=== PATIENT | female | born 1965 | race Caucasian/White ===

== ENCOUNTER 2018-01-30 14:27 | Outpatient (CLI) | payer OTHER | END 2018-01-30 14:28 | disposition home or self-care (01) | LOC: BICMAMMO 14:27 | PROVIDERS: ATTEND Family Medicine | DX: Z12.31 Encounter for screening mammogram for malignant neoplasm of breast (principal); Z80.3 Family history of malignant neoplasm of breast | CPT/HCPCS: 77067 ==

== ENCOUNTER 2018-09-16 17:38 | Emergency (ER) | payer OTHER ==
--- NOTE | 2018-09-16 19:06 | ULT ---
GALLBLADDER ULTRASOUND: 09/16/18 HISTORY: Right upper quadrant pain. Real time imaging of the right upper quadrant was performed. this shows a fairly large gallstone with in the gallbladder. No gallbladder wall thickening. The common duct is 3 mm. The visualized liver par enchyma shows no focal findings. The liver measures approximately 12 cm in length. Technologist repor ts a negative ultrasound Lora's sign. The pancreas is obscured. The right kidney is within normal limits in size and not obstructed. IMPRESSION: Cholelithiasis with a normal caliber common duct. POS: [facility]
--- NOTE | 2018-09-16 20:22 | CT ---
CT OF CHEST AND ABDOMEN AND PELVIS PERFORMED WITHOUT CONTRAST ENHANCEMENT: 09/16/18 HISTORY: Right sided pain and cough. COMPARISON: Gallbladder ultrasound done earlier today. No IV contrast administered as IV access could not be obtained. The lungs are clear of any infiltrative process. There is minimal linear atelectasis in the right americo g base. There is a noncalcified right lower lobe pulmonary nodule measuring 5 to [address] ructures appear unremarkable. The thoracic aorta is normal in caliber. CT OF ABDOMEN PERFORMED WITHOUT CONTRAST ENHANCEMENT: The liver, spleen and pancreas regions are noted. A large gallstone is present. There is no evidence of any pericholecystic inflammatory process. The right and left adrenal glands and right and left kidneys are normal in size. There is no signific ant periaortic or mesenteric adenopathy. CT OF PELVIS PERFORMED WITHOUT CONTRAST ENHANCEMENT: No evidence of adenopathy, mass or free fluid. Appendix region appears unremarkable. Review of osseous structures show no lytic or blastic bony change. IMPRESSION: 1. Gallstone. 2. No acute abnormalities of the chest, abdomen or pelvis. POS: [facility]
== END 2018-09-16 20:14 | disposition home or self-care (01) ==
LOC: ERS 17:38
DX: K80.20 Calculus of gallbladder without cholecystitis without obstruction (principal); F17.210 Nicotine dependence, cigarettes, uncomplicated; Z79.899 Other long term (current) drug therapy
CPT/HCPCS: 71250; 74177; 76705

== ENCOUNTER 2018-11-11 11:00 | Day surgery (SDC) | payer OTHER ==
--- NOTE | 2018-11-10 15:31 | HP ---
HISTORY OF PRESENT ILLNESS: This is a 53-year-old female comes for a colonoscopy for colon cancer screening. The patient has no specific GI symptom. There is no family history of colon cancer. ALLERGIES: PENICILLIN. MEDICAL ILLNESS: 1. Allergic rhinitis. 2. Gallstones. 3. Chronic acid reflux. 4. Hysterectomy. 5. Oophorectomy. 6. LEEP procedure in the past. PHYSICAL EXAMINATION: VITAL SIGNS: Her pulse is 72, blood pressure is 120/70. Conjunctivae clear. NECK: Supple. No adenitis or thyromegaly noted. CARDIOVASCULAR: First and second heart sounds. LUNGS: Clear to auscultation. ABDOMEN: Soft. No organomegaly. No tenderness. No masses. EXTREMITIES: Reveal no edema. ADMITTING DIAGNOSIS: A 53-year-old female comes for a colonoscopy for colon cancer screening. Job ID: [id number]
[2018-11-10 16:52] VITALS: BMI 29.8
--- NOTE | 2018-11-11 13:18 | OP ---
DATE OF PROCEDURE: 11/11/2018 PROCEDURE PERFORMED: Colonoscopy. PREOPERATIVE DIAGNOSIS: A 53-year-old female undergoing colonoscopy for colon cancer screening. POSTOPERATIVE DIAGNOSES: 1. Hypertrophied anal papillae. 2. Redundant colon. 3. Otherwise normal colonoscopy. DESCRIPTION OF PROCEDURE: The patient was placed on her left lateral position and was given sedation by Anesthesia Department. A rectal exam was done before scope was advanced into rectum. No lesions felt on rectal exam. A Pentax video colonoscope was introduced into the rectum and advanced all the way to the cecum. The prep was good. The mucosa appeared normal. The patient had a tortuous redundant sigmoid colon. Abdominal compression was used to advance the scope all the way into cecum. The appendicular opening, ileocecal wall, cecum, no pathology seen. Withdrawal from the cecum, ascending colon, hepatic flexure, no pathology seen. The transverse colon, splenic flexure, descending colon, sigmoid colon, no lesion. Retroflexion of scope in the rectum showed hypertrophied anal papillae. DISCHARGE PLANNING: This is a 53-year-old female referred to me for a colonoscopy for colon cancer screening. The patient had a colonoscopy. The colonoscopy was normal. DISCHARGE RECOMMENDATION: 1. The patient is advised to call me if she develops abdominal pain or hematochezia. 2. In the absence of any above symptoms, she will come back to me in 2 weeks. 3. Recommendation, repeat colonoscopy in 10 years. Job ID: [id number]
[2018-11-11] MEDS ORDERED: Lidocaine 1% PF 5 ML VIAL ONE (13:25)
[2018-11-11] MEDS ORDERED: PROPOFOL 200 MG/20 ML VIAL ONE (13:25)
== END 2018-11-11 14:10 | disposition home or self-care (01) ==
LOC: SDC 11:00
PROVIDERS: ATTEND Internal Medicine Gastroenterology
PROC: 0DJD8ZZ Inspection of Lower Intestinal Tract, Via Natural or Artificial Opening Endoscopic (ICD-10-PCS; principal; 2018-11-11)
DX: Z12.11 Encounter for screening for malignant neoplasm of colon (principal); K63.89 Other specified diseases of intestine; K62.89 Other specified diseases of anus and rectum; J30.9 Allergic rhinitis, unspecified; K21.9 Gastro-esophageal reflux disease without esophagitis; K80.80 Other cholelithiasis without obstruction; Z88.0 Allergy status to penicillin; Z90.710 Acquired absence of both cervix and uterus; Z90.721 Acquired absence of ovaries, unilateral; Z79.899 Other long term (current) drug therapy; Z98.890 Other specified postprocedural states
CPT/HCPCS: J2001; J2704

== ENCOUNTER 2019-01-30 06:07 | Day surgery (SDC) | payer OTHER ==
[2019-01-29 11:58] VITALS: BMI 30.6
[2019-01-30 06:54] LABS: #Basophils 0.1 thou/uL (0.0-0.2); #Eosinphils 0.4 thou/uL (0.0-0.7); #Lymphocytes 2.5 thou/uL (1.20-3.40); #Monocytes 0.5 thou/uL (0.11-0.59); #Neutrophils 4.5 thou/uL (1.40-6.50); %Basophils 0.7 % (0.0-1.0); %Eosinophils 4.9 % (0.0-10.0); %Lymphocytes 31.2 % (21.0-51.0); %Monocytes 6.7 % (0.0-10.0); %Neutrophils 56.4 % (42.0-75.0); Hemoglobin 13.8 g/dL (12.0-16.0); Mean Corpuscular HGB CONC 34.2 g/dL (32.0-36.0); Mean Corpuscular Hemoglobin 31.4 pg (27.0-31.0); Mean Corpuscular Volume 92.1 fL (78.0-98.0); Mean Platelet Volume 7.6 fL (7.4-10.4); Platelet Count 278 thou/uL (130-400); Red Blood Cell (RBC) Count 4.38 mill/uL (4.20-5.40); White Blood Cell (WBC) Count 8.1 thou/uL (4.8-10.8)
[2019-01-30 07:18] LABS: ALT (SGPT) 10 U/L (8-55); AST (SGOT) 12 U/L (5-34); Albumin 4.3 g/dL (3.5-5.0); Alkaline Phosphatase 88 U/L (40-150); Anion Gap 11 mmol/L (10-20); BUN (Urea Nitrogen) 6 mg/dL (9.8-20.1); Bilirubin, Total 0.4 mg/dL (0.2-1.2); Calc. Creatinine Clearance 100 mL/min (70-130); Calcium 9.3 mg/dL (7.8-10.44); Carbon Dioxide 28 mmol/L (22-29); Chloride 106 mmol/L (98-107); Estimated GFR-MDRD 75; Globulin 2.2 g/dL (2.4-3.5); Glucose 101 mg/dL (70-105); Protein, Total 6.5 g/dL (6.0-8.3); Sodium 141 mmol/L (136-145)
[2019-01-30] MEDS ORDERED: Levofloxacin 500 mg/D5W 100 ml Premix Bag ONE (07:52)
[2019-01-30] MEDS ORDERED: Midazolam HCl 2 mg/2 ml Vial ONE (07:52)
[2019-01-30] MEDS ORDERED: Bupivacaine/Epinephrine 0.25% 30 ML VIAL ONE (09:13)
[2019-01-30] MEDS ORDERED: Fentanyl 100 MCG/2 ML VIAL ONE ×2 (09:22→10:56)
[2019-01-30] MEDS ORDERED: Ondansetron PF 4 MG/2 ML Vial ONE (12:26)
--- NOTE | 2019-01-30 21:06 | PDOC.OP ---
Operative Note - Operative Note Operative Note: DATE OF PROCEDURE: 01/30/2019 PROCEDURES: Laparoscopic cholecystectomy. SURGEON: Daija Alvarado M.D. ASST.: Paul Gallo MS 3 PREOPERATIVE DIAGNOSIS: Cholelithiasis, symptomatic POSTOPERATIVE DIAGNOSIS: Cholelithiasis, symptomatic FINDINGS: Large stone in the gallbladder. No significant adhesions. Some fibrosis at the neck suggesting chronic inflammation. HISTORY: Patient with symptoms of biliary colic. Laparoscopic cholecystectomy was recommended for symptomatic relief. Preoperative LFTs were normal and bile duct was normal caliber on preoperative imaging. PROCEDURE: After informed consent was obtained and appropriate preoperative antibiotics were administered, the patient was taken to the operating room and placed in the supine position and general endotracheal anesthesia was administered. The stomach was decompressed with an OG tube and the abdomen was prepped and draped in standard sterile fashion. Local anesthesia was infused to the skin and subcutaneous tissues at the umbilical level. A transverse skin incision was made. The fascia was elevated and a Veress needle was placed into the abdominal cavity without difficulty. Opening pressure was less than 5 and carbon dioxide gas easily insufflated to an intra-abdominal pressure of 15, which the patient tolerated well. The Veress needle was withdrawn and a [place] port advanced under direct vision. The abdominal cavity was carefully examined. There was no evidence of Veress needle or of trocar injury. Local anesthesia was infused to the skin and subcutaneous tissues at the epigastric, right upper quadrant, and right lateral abdominal sites and trocars were placed under direct vision of the laparoscope. The fundus of the gallbladder was grasped and retracted superiorly. The infundibulum was grasped and retracted laterally. The serosa was stripped inferiorly at the level of the neck of the gallbladder exposing the cystic duct and artery which were traced clearly to their insertion in the gallbladder. Critical view of safety was obtained and the cystic duct and artery were clipped and divided between clips. The gallbladder was then dissected free of the gallbladder bed using hook electrocautery. Prior to complete removal of the gallbladder from the gallbladder bed, the area of the cystic duct and artery stumps was examined. The clips were in good position completely across these structures and there was no bleeding and no leakage of bile. The gallbladder was then placed into an EndoCatch bag and drawn out through the epigastric incision after crushing and removing a large stone. The epigastric trocar was replaced and the operative site easily irrigated to clear. There was no significant bleeding or spillage of bile. The epigastric trocar was removed and the fascia closed under direct laparoscopic vision with a 0 Vicryl suture on a GraNee needle in a figure-of- eight manner with excellent technical result. The right upper quadrant and right lateral abdominal trocars were removed and hemostasis verified. Carbon dioxide gas was allowed to desufflate through the umbilical trocar which was then removed. The skin incisions were closed with 4-0 subcuticular Monocryl sutures and Dermabond dressings were placed. The patient was extubated and taken to the recovery room in good condition. There were no complications. ESTIMATED BLOOD LOSS: Minimal. SPECIMEN : Gallbladder and contents.
== END 2019-01-30 12:45 | disposition home or self-care (01) ==
LOC: SDC 06:07
PROVIDERS: ATTEND Surgery
PROC: 0FT44ZZ Resection of Gallbladder, Percutaneous Endoscopic Approach (ICD-10-PCS; principal; 2019-01-30)
DX: K80.10 Calculus of gallbladder with chronic cholecystitis without obstruction (principal); E78.00 Pure hypercholesterolemia, unspecified; F41.9 Anxiety disorder, unspecified; G43.909 Migraine, unspecified, not intractable, without status migrainosus; F17.200 Nicotine dependence, unspecified, uncomplicated; Z90.710 Acquired absence of both cervix and uterus; Z88.0 Allergy status to penicillin; Z79.899 Other long term (current) drug therapy
CPT/HCPCS: 36415; 80053; 85025; 88304; J0131; J1956; J2250; J2405; J3010

== ENCOUNTER 2019-04-09 13:59 | Outpatient (CLI) | payer OTHER | END 2019-04-09 14:00 | disposition home or self-care (01) | LOC: CTENTCT 13:59 | PROVIDERS: ATTEND Otolaryngology Plastic Surgery within the Head & Neck | DX: J01.91 Acute recurrent sinusitis, unspecified (principal) | CPT/HCPCS: 70486 ==

== ENCOUNTER 2019-09-08 12:33 | Outpatient (CLI) | payer OTHER ==
--- NOTE | 2019-09-08 12:53 | RAD ---
XR Chest Pa Lat @ [facility] HISTORY: Dyspnea COMPARISON: 04/20/2019 FINDINGS: The heart size is normal. The lungs are well expanded without focal areas of consolidation, pneumothorax or pleural effusions. IMPRESSION: No radiographic evidence of acute cardiopulmonary process.
== END 2019-09-08 12:34 | disposition home or self-care (01) ==
LOC: RAD 12:33
PROVIDERS: ATTEND Internal Medicine Pulmonary Disease
DX: R06.00 Dyspnea, unspecified (principal)
CPT/HCPCS: 71046